=== PATIENT | male | born 1975 | race American Indian/Alaskan Native ===

== ENCOUNTER 2022-02-01 05:03 | Emergency (ER) | payer SELFPAY ==
--- NOTE | 2022-02-01 11:10 | Emergency Department Report ---
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 He states today he noticed the bottom his toes rubbing against his shoes which a small nodule continue to increase in size. Patient states that he has been applying warm compress to help with the swelling but no relief. Patient states that he attempted to expel pus by using a safety pin without any relief. Patient denies any fever chills or nausea or vomiting without any relief. Patient is alert and oriented x3. No acute distress noted. No ill appearance noted. Patient denies any past medical history. MD Complaint: joint paint Onset/Timin -: week(s) Location: right History of Same: No Severity scale (0 -10): 8 Quality: aching Consistency: intermittent Improves with: nothing Worsens with: weight bearing Associated Symptoms: denies other symptoms - Related Data Previous Rx's Medication Instructions Recorded Last Taken Type HYDROcodone/APAP 5-325 [[place] 1 each PO Q6HR PRN #10 tablet 01/03/20 Unknown Rx 5/325] Ibuprofen [Motrin 600 MG tab] 600 mg PO Q8H PRN #14 tablet 01/03/20 Unknown Rx Ibuprofen [Motrin] 800 mg PO Q8HR PRN 15 Days #30 02/01/22 Unknown Rx tablet Sulfamethoxazole/Trimethoprim 1 each PO BID 10 Days #20 tab 02/01/22 Unknown Rx [Bactrim DS TAB] cephALEXin [Keflex] 500 mg PO Q12HR 10 Days #20 cap 02/01/22 Unknown Rx Allergies Allergy/AdvReac Type Severity Reaction Status Date / Time No Known Allergies Allergy Verified 02/01/22 10:41 ED Review of Systems ROS: Stated complaint: RIGHT TOE SWOLLEN Other details as noted in HPI Constitutional: denies: chills, fever Eyes: denies: eye pain, eye discharge, vision change ENT: denies: ear pain, throat pain Respiratory: denies: cough, shortness of breath, wheezing Cardiovascular: denies: chest pain, palpitations Endocrine: no symptoms reported Gastrointestinal: denies: abdominal pain, nausea, diarrhea Genitourinary: denies: urgency, dysuria Musculoskeletal: denies: back pain, joint swelling, arthralgia Skin: denies: rash, lesions Neurological: denies: headache, weakness, paresthesias Psychiatric: denies: anxiety, depression Hematological/Lymphatic: denies: easy bleeding, easy bruising ED Past Medical Hx - Social History Smoking Status: Unknown if ever smoked Substance Use Type: None - Medications Home Medications: Home Medications Medication Instructions Recorded Confirmed Last Taken Type HYDROcodone/APAP 5-325 [[place] 1 each PO Q6HR PRN #10 tablet 01/03/20 Unknown Rx 5/325] Ibuprofen [Motrin 600 MG tab] 600 mg PO Q8H PRN #14 tablet 01/03/20 Unknown Rx Ibuprofen [Motrin] 800 mg PO Q8HR PRN 15 Days #30 02/01/22 Unknown Rx tablet Sulfamethoxazole/Trimethoprim 1 each PO BID 10 Days #20 tab 02/01/22 Unknown Rx [Bactrim DS TAB] cephALEXin [Keflex] 500 mg PO Q12HR 10 Days #20 cap 02/01/22 Unknown Rx ED Physical Exam - General Limitations: No Limitations General appearance: alert, in no apparent distress - Head Head exam: Present: atraumatic, normocephalic - Eye Eye exam: Present: normal appearance - ENT ENT exam: Present: mucous membranes moist - Neck Neck exam: Present: normal inspection - Respiratory Respiratory exam: Present: normal lung sounds bilaterally. Absent: respiratory distress - Cardiovascular Cardiovascular Exam: Present: regular rate, normal rhythm. Absent: systolic murmur, diastolic murmur, rubs, gallop - GI/Abdominal GI/Abdominal exam: Present: soft, normal bowel sounds - Rectal Rectal exam: Present: deferred - Extremities Exam Extremities exam: Present: normal inspection - Expanded Lower Extremity Exam Right Foot/Toe exam: Present: tenderness, swelling - Back Exam Back exam: Present: normal inspection - Neurological Exam Neurological exam: Present: alert, oriented X3 - Psychiatric Psychiatric exam: Present: normal affect, normal mood - Skin Skin exam: Present: warm, dry, intact, normal color. 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 He states today he noticed the bottom his toes rubbing against his shoes which a small nodule continue to increase in size. Patient states that he has been applying warm compress to help with the swelling but no relief. Patient states that he attempted to expel pus by using a safety pin without any relief. Patient denies any fever chills or nausea or vomiting without any relief. Patient is alert and oriented x3. No acute distress noted. No ill appearance noted. Patient denies any past medical history. Physical examination patient has a tender nodule noted to the second toe . Rechecked the patient is resting quietly and comfortable and feeling better. I discussed the results of diagnostic study, my clinical impression and the plan for further treatment with the patient. Patient agrees with plan and discharge at this present time. All question addressed. I have given the patient instruction regarding a diagnosis ,expectation ,follow- up and return precaution. I explained to the patient that emergent condition may arise and to return to the ED for new worsen and any new persisting condition. I have explained the importance of following up with the primary care physician or referral physician listed below has instructed. The patient verbalized understanding of discharge instruction. Critical care attestation.: If time is entered above; I have spent that time in minutes in the direct care of this critically ill patient, excluding procedure time. ED Disposition Clinical Impression: Cellulitis of toe, right Disposition: 01 HOME / SELF CARE / HOMELESS Is pt being admited?: No Does the pt Need Aspirin: No Condition: Stable Instructions: Paronychia, Cellulitis, Adult, [id number] Additional Instructions: Take medication as prescribed Return to the ED for worsen for symptoms Prescriptions: Sulfamethoxazole/Trimethoprim [Bactrim DS TAB] 1 each PO BID 10 Days #20 tab cephALEXin [Keflex] 500 mg PO Q12HR 10 Days #20 cap Ibuprofen [Motrin] 800 mg PO Q8HR PRN 15 Days #30 tablet PRN Reason: Pain, Mild (1-3) Referrals: [facility] [Provider Group] - 3-5 Days Forms: Work/School Release Form(ED) Time of Disposition: 11:15
[2022-02-01 11:48] VITALS: BP 108/60
== END 2022-02-01 11:47 | disposition home or self-care (01) ==
LOC: ED 05:03
DX: L03.031 Cellulitis of right toe (principal)
CPT/HCPCS: 99282